=== PATIENT | male | born 1980 | race Caucasian/White ===

== ENCOUNTER 2018-02-11 15:44 | Emergency (ER) | payer BC ==
[2018-02-11 15:51] VITALS: RESP 18
[2018-02-11] MEDS ORDERED: PROPARACAINE 0.5% OPHTH DROPS 15 ML BTL LEFT EYE STA (16:11)
--- NOTE | 2018-02-11 16:22 | ED ---
General Adult HPI <Javed Grant - Last Filed: 02/11/18 16:57> - General Source: patient, RN notes reviewed Mode of arrival: ambulatory Limitations: no limitations <Jose Guardado - Last Filed: 02/11/18 17:06> - General Chief complaint: Eye Problems Stated complaint: Eye infection Time Seen by Provider: 02/11/18 16:07 - History of Present Illness Initial comments: Patient's 37-year-old male presented to the emergency room today with chief complaint of some redness to the left eye. He does admit that symptoms started 2 weeks ago. He states he's had some irritation both the left and the right eye over the last 2 weeks. He states that it seems like there is his eyes or dry and is also been some running clear drainage coming from the eye. He states that at times it been red. He states that a few days later revealed be okay. He states that over the last 2 days his left eye has been bothering him more. He states that this better than it has been at any point over the last 2 weeks. He states right now is currently not painful. He states that at times it does seem to be more sensitive to light and IV is trying to concentrate and focus on something. Patient denies any other complaints or symptoms. Patient denies any known injuries. (Jose Guardado) - Related Data Previous Rx's Medication Instructions Recorded Ofloxacin 0.3% Ophth Soln [Ocuflox 1 - 2 drops BOTH EYES QID 7 Days 02/11/18 Ophth Soln] ml Allergies Allergy/AdvReac Type Severity Reaction Status Date / Time No Known Allergies Allergy Verified 02/11/18 15:51 Review of Systems ROS Other: All systems not noted in ROS Statement are negative. <Javed Grant - Last Filed: 02/11/18 16:57> ROS Other: All systems not noted in ROS Statement are negative. <Jose Guardado - Last Filed: 02/11/18 17:06> ROS Statement: Those systems with pertinent positive or pertinent negative responses have been documented in the HPI. Past Medical History Past Medical History: No Reported History History of Any Multi-Drug Resistant Organisms: None Reported Past Surgical History: No Surgical Hx Reported Past Psychological History: No Psychological Hx Reported Smoking Status: Current every day smoker Past Alcohol Use History: Occasional Past Drug Use History: None Reported <Jose Guardado - Last Filed: 02/11/18 17:06> General Exam <Javed Grant - Last Filed: 02/11/18 16:57> Limitations: no limitations <Jose Guardado - Last Filed: 02/11/18 17:06> - General Exam Comments Initial Comments: General: The patient is awake and alert, in no distress, and does not appear acutely ill. Eye: Pupils are equal, round and reactive to light, extra-ocular movements are intact. No nystagmus. Increased redness to the left conjunctiva with clear watery drainage. Ears, nose, mouth and throat: There are moist mucous membranes and no oral lesions. Neck: The neck is supple Musculoskeletal: Normal ROM, no tenderness. Strength 5/5. Sensation intact. Neurological: A&O x 3. CN II-XII intact, There are no obvious motor or sensory deficits. Coordination appears grossly intact. Speech is normal. Skin: Skin is warm and dry and no rashes or lesions are noted. Psychiatric: Cooperative, appropriate mood & affect, normal judgment. (Jose Guardado) Vital Signs 02/11/18 15:49 Temperature 98.4 F Pulse Rate 76 Respiratory 18 Rate Blood Pressure 147/94 O2 Sat by Pulse 98 Oximetry Procedures <RudyJaved - Last Filed: 02/11/18 16:57> <Jose Guardado - Last Filed: 02/11/18 17:06> - Procedures Initial comment: Patient's left eye was anesthetized locally with proparacaine which did relieve some of symptoms. Patient left eye was stained with forcing checked with Wood' s lamp revealing no corneal abrasion, ulcer. No foreign bodies. Lids inverted. Patient's left eye pressure was checked 19 here in the emergency room. (Jose Guardado) Medical Decision Making <Javed Grant - Last Filed: 02/11/18 16:57> <Jose Guardado - Last Filed: 02/11/18 17:06> - Medical Decision Making Patient presents with discomfort to his left eye. He states that he was 30 day contacts and put some in left and right his irritation to the eye: Left eye to right eye and back and forth. He awakens with crusty irritation but no foreign body sensation in no photophobia. The Asians eye was examined and no foreign body was noted no corneal ulcers or abrasions noted. The plant this time for the patient be treated with antibiotics. Not to wear his contact lenses until cleared by an roof slater. He is return emergency room as needed. Dr. Grant (Javed Grant) Disposition <Javed Grant - Last Filed: 02/11/18 16:57> Is patient prescribed a controlled substance at d/c from ED?: No <Jose Guardado - Last Filed: 02/11/18 17:06> Clinical Impression: Conjunctivitis Disposition: HOME SELF-CARE Condition: Good Instructions: Conjunctivitis (ED) Additional Instructions: Please use antibiotic drops as prescribed. Please do not wear contacts until all symptoms have completely resolved and follow-up with roof slater over the next 2 days. Please return to emergency room if any symptoms increase worsen or for any other concerns. Prescriptions: Ofloxacin 0.3% Ophth Soln [Ocuflox Ophth Soln] 1 - 2 drops BOTH EYES QID 7 Days ml Referrals: None,Stated [Primary Care Provider] - 1-2 days Steffen Linares MD [STAFF PHYSICIAN] - 1-2 days
[2018-02-11 17:22] VITALS: BP 130/80; PULSE 77; TEMP 98.2
== END 2018-02-11 17:21 | disposition home or self-care (01) ==
LOC: EC 15:44
DX: H10.9 Unspecified conjunctivitis (principal); F17.200 Nicotine dependence, unspecified, uncomplicated
CPT/HCPCS: 99282

== ENCOUNTER 2024-09-02 14:24 | Emergency (ER) | payer BC, OTHER ==
--- NOTE | 2024-09-02 14:34 | ED ---
General Adult HPI - General Source: patient, RN notes reviewed Mode of arrival: ambulatory Limitations: no limitations <Rodney Jimenez - Last Filed: 09/02/24 14:33> - General Source: patient, RN notes reviewed, old records reviewed Mode of arrival: ambulatory Limitations: no limitations - History of Present Illness -: days(s) Radiation: non-radiation Severity scale (1-10): 5 Consistency: constant Improves with: none Worsens with: none Associated Symptoms: loss of appetite, nausea/vomiting Treatments Prior to Arrival: none <Alberto Durant - Last Filed: 09/08/24 22:18> - General Stated complaint: SOB,Fever-poss overdose Time Seen by Provider: 09/02/24 14:32 - History of Present Illness Initial comments: Quick note 44-year-old male presents emergency department chief complaint of chest pain shortness of breath possible fever drug overdose. Patient states he used 6 g of methamphetamines over the weekend states for semis ever using inhaled. Patient states that he has had palpitations chest discomfort with shortness of breath, sweats. Patient believes more likely is from his drug use but is unsure denies any leg pain leg swelling. (Rodney Jimenez) This is a 44 male to the ED for chest pain and possible drug overdose or withdrawal. (Alberto Durant) - Related Data Previous Rx's Medication Instructions Recorded Ofloxacin 0.3% Ophth Soln [Ocuflox 1 - 2 drops BOTH EYES QID 7 Days 02/11/18 Ophth Soln] ml Allergies Allergy/AdvReac Type Severity Reaction Status Date / Time No Known Allergies Allergy Verified 09/02/24 15:09 Review of Systems ROS Other: All systems not noted in ROS Statement are negative. <Rodney Jimenez - Last Filed: 09/02/24 14:33> ROS Other: All systems not noted in ROS Statement are negative. <Alberto Durant - Last Filed: 09/08/24 22:18> ROS Statement: Those systems with pertinent positive or pertinent negative responses have been documented in the HPI. Past Medical History Past Medical History: No Reported History History of Any Multi-Drug Resistant Organisms: None Reported Past Surgical History: No Surgical Hx Reported Past Psychological History: No Psychological Hx Reported Past Alcohol Use History: Occasional Past Drug Use History: None Reported <Rodney Jimenez - Last Filed: 09/02/24 14:33> General Exam <Rodney Jimenez Dominga - Last Filed: 09/02/24 14:33> General appearance: alert, in no apparent distress, anxious Head exam: Present: atraumatic, normocephalic, normal inspection Eye exam: Present: normal appearance, PERRL, EOMI. Absent: scleral icterus, conjunctival injection, periorbital swelling ENT exam: Present: normal exam, mucous membranes moist Neck exam: Present: normal inspection. Absent: tenderness, meningismus, lymphadenopathy Respiratory exam: Present: normal lung sounds bilaterally. Absent: respiratory distress, wheezes, rales, rhonchi, stridor Cardiovascular Exam: Present: normal rhythm, tachycardia, normal heart sounds. Absent: systolic murmur, diastolic murmur, rubs, gallop, clicks GI/Abdominal exam: Present: soft, normal bowel sounds. Absent: distended, tenderness, guarding, rebound, rigid Extremities exam: Present: normal inspection, full ROM, normal capillary refill. Absent: tenderness, pedal edema, joint swelling, calf tenderness Back exam: Present: normal inspection Neurological exam: Present: alert, oriented X3, CN II-XII intact Psychiatric exam: Present: normal affect, normal mood Skin exam: Present: warm, dry, intact, normal color. Absent: rash <Alberto Durant - Last Filed: 09/08/24 22:18> - General Exam Comments Initial Comments: Visual Physical Exam Vital signs reviewed General: Well-appearing, nontoxic, no acute distress. Head: Normocephalic, atraumatic Eyes: PERRLA, EOMI ENT: Airway patent Chest: Nonlabored breathing Skin: No visual rash, normal skin tone Neuro: Alert and oriented 3 Musculoskeletal: No gross abnormalities (Rodney Jimenez) Course <Alberto Durant - Last Filed: 09/08/24 22:18> Vital Signs 09/02/24 09/02/24 15:06 21:36 Temperature 99.3 F Pulse Rate 117 H 103 H Respiratory 18 18 Rate Blood Pressure 159/90 157/104 O2 Sat by Pulse 98 98 Oximetry - Reevaluation(s) Reevaluation #1: Records reviewed (Alberto Durant) Reevaluation #2: Symptoms unchanged (Alberto Durant) Reevaluation #3: Results and questions answered (Alberto Durant) Reevaluation #4: Was pt. sent in by a medical professional or institution (RAJESH Dejesus, CHAR CONVEYOR TENDER, urgent care, hospital, or half-way...) When possible be specific @ -no Did you speak to anyone other than the patient for history (EMS, parent, family, police, friend...)? What history was obtained from this source @ -no Did you review nursing and triage notes (agree or disagree)? Why? @ -agree Are old charts reviewed (outside hosp., previous admission, EMS record, old EKG, old radiological studies, urgent care reports/EKG's, half-way records)? Report findings @ -yes Differential Diagnosis (chest pain, altered mental status, abdominal pain women, abdominal pain men, vaginal bleeding, weakness, fever, dyspnea, syncope, headache, dizziness, GI bleed, back pain, seizure, CVA, palpatations, mental health, musculoskeletal)? @ -prior EKG interpreted by me (3pts min.). @ -yes X-rays interpreted by me (1pt min.). @ -yes negative for acute disease CT interpreted by me (1pt min.). @ -no U/S interpreted by me (1pt. min.). @ -no What testing was considered but not performed or refused? (CT, X-rays, U/S, labs)? Why? @ -none What meds were considered but not given or refused? Why? @ -none Did you discuss the management of the patient with other professionals (professionals i.e. RAJESH Dejesus, CHAR CONVEYOR TENDER, lab, RT, psych nurse, rn social services, crew member, teacher, lodge officer, hospice case manager)? Give summary @ -no Was smoking cessation discussed for >3mins.? @ -no Was critical care preformed (if so, how long)? @ -no Were there social determinants of health that impacted care today? How? (Homelessness, low income, unemployed, alcoholism, drug addiction, transportation, low edu. Level, literacy, decrease access to med. care, shelter, rehab)? @ -none Was there de-escalation of care discussed even if they declined (Discuss DNR or withdrawal of care, Hospice)? DNR status @ -no What co-morbidities impacted this encounter? (DM, HTN, Smoking, COPD, CAD, Cancer, CVA, ARF, Chemo, Hep., AIDS, mental health diagnosis, sleep apnea, morbid obesity)? @ -none Was patient admitted / discharged? Hospital course, mention meds given and route, prescriptions, significant lab abnormalities, going to OR and other pertinent info. @ - 44 male to the ED for nv, weakness likely medication effect Discharge Undiagnosed new problem with uncertain prognosis? @ -no Drug Therapy requiring intensive monitoring for toxicity (Heparin, Nitro, Insulin, Cardizem)? @ -no Were any procedures done? @ -no Diagnosis/symptom? @ -nausea vomiting side effect medication Acute, or Chronic, or Acute on Chronic? @ -Acute Uncomplicated (without systemic symptoms) or Complicated (systemic symptoms)? @ -Complicated Side effects of treatment? @ -no Exacerbation, Progression, or Severe Exacerbation? @ -exacerbation Poses a threat to life or bodily function? How? (Chest pain, USA, MD, pneumonia, PE, COPD, DKA, ARF, appy, cholecystitis, CVA, Diverticulitis, Homicidal, Suicidal, threat to staff... and all critical care pts) @ -no (Alberto Durant) EKG Findings - EKG Comments: EKG Findings:: EKG is sinus tach 110 AL 172 QRS 100 QTc 392 - EKG Results: EKG: interpreted by ERMD <Alberto Durant - Last Filed: 09/08/24 22:18> Medical Decision Making <Rodney Jimenez - Last Filed: 09/02/24 14:33> - Lab Data Result diagrams: 09/02/24 16:49 09/02/24 15:43 - EKG Data -: EKG Interpreted by Me - Radiology Data Radiology results: report reviewed (Chest x-ray is negative for acute disease), image reviewed <Alberto Druant - Last Filed: 09/08/24 22:18> - Medical Decision Making I completed the quick note portion of this chart signed Rodney Jimenez PA-C (Rodney Jimenez) 44 male to the ED for nv, weakness likely medication effect (Alberto Durant) - Lab Data Lab Results 09/02/24 09/02/24 09/02/24 Range/Units 15:43 15:43 15:45 WBC (3.8-10.6) k/uL RBC (4.30-5.90) m/uL Hgb (13.0-17.5) gm/dL Hct (39.0-53.0) % MCV (80.0-100.0) fL MCH (25.0-35.0) pg MCHC (31.0-37.0) g/dL RDW (11.5-15.5) % Plt Count (150-450) k/uL MPV Neutrophils % % Lymphocytes % % Monocytes % % Eosinophils % % Basophils % % Neutrophils # (1.3-7.7) k/uL Lymphocytes # (1.0-4.8) k/uL Monocytes # (0-1.0) k/uL Eosinophils # (0-0.7) k/uL Basophils # (0-0.2) k/uL D-Dimer 0.25 (<0.60) mg/L FEU Sodium 139 (137-145) mmol/L Potassium 3.6 (3.5-5.1) mmol/L Chloride 107 (98-107) mmol/L Carbon Dioxide 22 (22-30) mmol/L Anion Gap 10 mmol/L BUN 14 (9-20) mg/dL Creatinine 0.92 (0.66-1.25) mg/dL Est GFR (CKD-EPI)AfAm >90 (>60 ml/min/1.73 sqM) Est GFR (CKD-EPI)NonAf >90 (>60 ml/min/1.73 sqM) Glucose 103 H (74-99) mg/dL Calcium 10.1 (8.4-10.2) mg/dL Phosphorus (2.5-4.5) mg/dL Magnesium (1.6-2.3) mg/dL Total Bilirubin 1.2 (0.2-1.3) mg/dL AST 48 (17-59) U/L ALT 69 H (4-49) U/L Alkaline Phosphatase 90 (38-126) U/L Troponin I <0.012 (0.000-0.034) ng/mL Total Protein 7.6 (6.3-8.2) g/dL Albumin 5.0 (3.5-5.0) g/dL Urine Opiates Screen (NotDetected) Ur Oxycodone Screen (NotDetected) Urine Methadone Screen (NotDetected) Ur Barbiturates Screen (NotDetected) U Tricyclic Antidepress (NotDetected) Ur Phencyclidine Scrn (NotDetected) Ur Amphetamines Screen (NotDetected) U Methamphetamines Scrn (NotDetected) U Benzodiazepines Scrn (NotDetected) Urine Cocaine Screen (NotDetected) U Marijuana (THC) Screen (NotDetected) 09/02/24 09/02/24 09/02/24 Range/Units 16:49 17:07 19:32 WBC 11.0 H (3.8-10.6) k/uL RBC 5.73 (4.30-5.90) m/uL Hgb 17.4 (13.0-17.5) gm/dL Hct 49.2 (39.0-53.0) % MCV 85.8 (80.0-100.0) fL MCH 30.4 (25.0-35.0) pg MCHC 35.4 (31.0-37.0) g/dL RDW 12.2 (11.5-15.5) % Plt Count 269 (150-450) k/uL MPV 7.6 Neutrophils % 61 % Lymphocytes % 28 % Monocytes % 7 % Eosinophils % 3 % Basophils % 1 % Neutrophils # 6.7 (1.3-7.7) k/uL Lymphocytes # 3.1 (1.0-4.8) k/uL Monocytes # 0.7 (0-1.0) k/uL Eosinophils # 0.3 (0-0.7) k/uL Basophils # 0.1 (0-0.2) k/uL D-Dimer (<0.60) mg/L FEU Sodium (137-145) mmol/L Potassium (3.5-5.1) mmol/L Chloride (98-107) mmol/L Carbon Dioxide (22-30) mmol/L Anion Gap mmol/L BUN (9-20) mg/dL Creatinine (0.66-1.25) mg/dL Est GFR (CKD-EPI)AfAm (>60 ml/min/1.73 sqM) Est GFR (CKD-EPI)NonAf (>60 ml/min/1.73 sqM) Glucose (74-99) mg/dL Calcium (8.4-10.2) mg/dL Phosphorus 2.2 L (2.5-4.5) mg/dL Magnesium 2.2 (1.6-2.3) mg/dL Total Bilirubin (0.2-1.3) mg/dL AST (17-59) U/L ALT (4-49) U/L Alkaline Phosphatase (38-126) U/L Troponin I (0.000-0.034) ng/mL Total Protein (6.3-8.2) g/dL Albumin (3.5-5.0) g/dL Urine Opiates Screen Not Detected (NotDetected) Ur Oxycodone Screen Not Detected (NotDetected) Urine Methadone Screen Not Detected (NotDetected) Ur Barbiturates Screen Not Detected (NotDetected) U Tricyclic Antidepress Not Detected (NotDetected) Ur Phencyclidine Scrn Not Detected (NotDetected) Ur Amphetamines Screen Detected H (NotDetected) U Methamphetamines Scrn Detected H (NotDetected) U Benzodiazepines Scrn Detected H (NotDetected) Urine Cocaine Screen Not Detected (NotDetected) U Marijuana (THC) Screen Not Detected (NotDetected) Disposition <Rodney Jimenez M - Last Filed: 09/02/24 14:33> Is patient prescribed a controlled substance at d/c from ED?: No Time of Disposition: 20:00 <Alberto Duratn - Last Filed: 09/08/24 22:18> Clinical Impression: Nausea & vomiting, Dehydration Disposition: HOME SELF-CARE Instructions (If sedation given, give patient instructions): Acute Nausea and Vomiting (ED) Referrals: None,Stated [Primary Care Provider] - 1-2 days
[2024-09-02 15:09] VITALS: RESP 18; TEMP 99.3
[2024-09-02 16:11] LABS: ALT 69 U/L (4-49); AST 48 U/L (17-59); African American GFR (CKD) >90 (>60 ml/min/1.73 sqM); Alkaline Phosphatase 90 U/L (38-126); Anion Gap 10 mmol/L; Blood Urea Nitrogen 14 mg/dL (9-20); Calcium 10.1 mg/dL (8.4-10.2); Carbon Dioxide 22 mmol/L (22-30); Chloride 107 mmol/L (98-107); Glucose 103 mg/dL (74-99); Non-African American GFR(CKD) >90 (>60 ml/min/1.73 sqM); Potassium 3.6 mmol/L (3.5-5.1); Sodium 139 mmol/L (137-145); Total Bilirubin 1.2 mg/dL (0.2-1.3); Total Protein 7.6 g/dL (6.3-8.2)
[2024-09-02 17:07] LABS: Basophils # (A) 0.1 k/uL (0-0.2); Basophils % (A) 1 %; Eosinophils # (A) 0.3 k/uL (0-0.7); Eosinophils % (A) 3 %; HCT 49.2 % (39.0-53.0); HGB 17.4 gm/dL (13.0-17.5); Lymphocytes # (A) 3.1 k/uL (1.0-4.8); Lymphocytes % (A) 28 %; MCH 30.4 pg (25.0-35.0); MCHC 35.4 g/dL (31.0-37.0); MCV 85.8 fL (80.0-100.0); Mean Platelet Volume 7.6; Monocytes # (A) 0.7 k/uL (0-1.0); Monocytes % (A) 7 %; Neutrophils # (A) 6.7 k/uL (1.3-7.7); Neutrophils % (A) 61 %; Platelet Count 269 k/uL (150-450); RBC 5.73 m/uL (4.30-5.90); RDW 12.2 % (11.5-15.5)
[2024-09-02 17:32] LABS: Amphetamine Screen,Urine Detected (NotDetected); Barbiturate Screen,Urine Not Detected (NotDetected); Benzodiazepines Screen,Urine Detected (NotDetected); Cocaine Screen,Urine Not Detected (NotDetected); Methadone Screen, Urine Not Detected (NotDetected); Opiate Screen,Urine Not Detected (NotDetected); Oxycodone Screen, Urine Not Detected (NotDetected); Phencyclidine Screen,Urine Not Detected (NotDetected); Tricyclic Antidepressant,Urine Not Detected (NotDetected); Urn Cannabinoid Scrn Not Detected (NotDetected)
[2024-09-02 19:45] LABS: Magnesium 2.2 mg/dL (1.6-2.3); Phosphorus 2.2 mg/dL (2.5-4.5)
[2024-09-02] MEDS: SODIUM CHLORIDE 0.9% 1,000 ML IV STA (19:50)
[2024-09-02] MEDS: ONDANSETRON 4 MG/2 ML VIAL IVP STA (19:50)
--- NOTE | 2024-09-02 20:09 | XR ---
EXAMINATION TYPE: XR chest 1V portable DATE OF EXAM: 09/02/2024 8:02 PM COMPARISON: None CLINICAL INDICATION: Male, 44 years old with history of sob; [facility] TECHNIQUE: XR chest 1V portable Frontal view of the chest. FINDINGS: Lungs/Pleura: There is no evidence of pleural effusion, focal consolidation, or pneumothorax. Pulmonary vascularity: Unremarkable. Heart/mediastinum: Cardiomediastinal silhouette is unre markable. Musculoskeletal: No acute osseous pathology. IMPRESSION: No acute cardiopulmonary disease/process. [facility], , 09/02/2024 8:07 PM
[2024-09-02] MEDS: ONDANSETRON 4 MG ODT STARTER PACK 2 TAB BTL PO STA (21:33)
[2024-09-02 21:37] VITALS: BP 157/104; PULSE 103
== END 2024-09-02 21:57 | disposition home or self-care (01) ==
LOC: EC 14:24
DX: E86.0 Dehydration (principal); R11.2 Nausea with vomiting, unspecified; R00.0 Tachycardia, unspecified
CPT/HCPCS: 36415; 93005; 85379; 80053; 83735; 84100; 84484; 85025; 80306; 71045; 99285; 96374; 96375; 96361 ×2; J3360; J2405